=== PATIENT | female | born 1960 | race Caucasian/White ===

== ENCOUNTER 2017-10-16 15:09 | Emergency (ER) | payer BC, OTHER ==
[2017-10-16] MEDS ORDERED: IOPAMIDOL-370 75 ML VIAL IV ONE (16:08)
[2017-10-16 16:25] LABS: BASOPHILS % (AUTO) 0.4 % (0.0-5.0); EOSINOPHILS % (AUTO) 11.1 % (0.0-8.0); HEMATOCRIT 37.2 % (36-48); LYMPHOCYTES % (AUTO) 25.2 % (21.0-51.0); MEAN CORPUSCULAR HEMOGLOBIN 32.3 pg (27.0-33.0); MEAN CORPUSCULAR HGB CONC 34.6 g/dL (32.0-36.0); MEAN CORPUSCULAR VOLUME 93.5 fL (79-99); MONOCYTES % (AUTO) 7.9 % (3.0-13.0); NEUTROPHILS % (AUTO) 55.4 % (40.0-77.0); PLATELET COUNT (AUTO) 241 K/uL (130-400); RED BLOOD CELL COUNT(AUTO) 3.98 MIL/uL (4.00-5.50); RED CELL DISTRIBUTION WIDTH 14.8 % (11.0-15.5); WHITE BLOOD COUNT (AUTO) 10.8 K/uL (4.8-10.8)
[2017-10-16 16:34] LABS: CREATININE 0.7 mg/dL (0.5-1.5); POTASSIUM 4.5 mmol/L (3.5-5.1)
[2017-10-16] MEDS ORDERED: CLINDAMYCIN 600 MG/D5% WATER 50 ML IV ONE (16:34)
[2017-10-16] MEDS ORDERED: SODIUM CHLORIDE 0.9% 1000ML 1,000 ML IV ONE (16:34)
[2017-10-16 16:38] LABS: ALBUMIN 3.6 g/dL (3.5-5.0); BILIRUBIN,TOTAL 0.4 mg/dL (0.2-1.0); TOTAL PROTEIN, SERUM 7.9 g/dL (6.0-8.3)
== END 2017-10-16 17:49 | disposition home or self-care (01) ==
LOC: EDH 15:09
DX: K04.7 Periapical abscess without sinus (principal); L03.211 Cellulitis of face; Z72.0 Tobacco use
CPT/HCPCS: 36415; 70487; 80053; 85025; 96360; 99285; J3490; J7030; Q9967

== ENCOUNTER 2020-06-01 14:34 | Inpatient (IN) | payer OTHER ==
[~2020-06-01] VITALS: Ht 180.3 cm; Wt 108.4 kg
[2020-06-01 15:35] LABS: BASOPHILS % (AUTO) 0.4 % (0.0-5.0); HEMATOCRIT 42.5 % (36-48); LYMPHOCYTES % (AUTO) 30.5 % (21.0-51.0); MEAN CORPUSCULAR HEMOGLOBIN 31.9 pg (27.0-33.0); MEAN CORPUSCULAR HGB CONC 32.7 g/dL (32.0-36.0); MEAN CORPUSCULAR VOLUME 97.5 fL (79-99); MONOCYTES % (AUTO) 8.7 % (3.0-13.0); NEUTROPHILS % (AUTO) 56.2 % (40.0-77.0); PLATELET COUNT (AUTO) 213 K/uL (130-400); RED BLOOD CELL COUNT(AUTO) 4.36 MIL/uL (4.00-5.50); RED CELL DISTRIBUTION WIDTH 14.8 % (11.0-15.5); WHITE BLOOD COUNT (AUTO) 10.6 K/uL (4.8-10.8)
[2020-06-01 15:38] LABS: APPEARANCE,URINE Clear (CLEAR); BILIRUBIN,URINE Negative (NEGATIVE); COLOR,URINE Yellow (YELLOW); GLUCOSE, URINE (UA) Negative (NEGATIVE); KETONES,URINE Negative (NEGATIVE); LEUKOCYTE ESTERASE ,URINE Negative (NEGATIVE); NITRATE,URINE Negative (NEGATIVE); OCCULT BLOOD,URINE Negative (NEGATIVE); PROTEIN,URINE Negative (NEGATIVE)
[2020-06-01 15:49] LABS: CREATININE 0.7 mg/dL (0.5-1.5); POTASSIUM 4.1 mmol/L (3.5-5.1)
[2020-06-01 15:51] LABS: INR 1.06 (0.85-1.15); PARTIAL THROMBOPLASTIN TIME 31.9 SEC (26.3-35.5); PROTHROMBIN TIME 11.4 SEC (9.6-11.6)
[2020-06-01 16:01] LABS: ALBUMIN 4.2 g/dL (3.5-5.0); BILIRUBIN,TOTAL 0.9 mg/dL (0.2-1.0); MAGNESIUM 3.1 mg/dL (1.80-2.40); THYROID STIMULATING HORMONE 1.11 uIU/mL (0.36-3.74); TOTAL PROTEIN, SERUM 8.9 g/dL (6.0-8.3)
[2020-06-01 16:02] LABS: B-TYPE NATRIURETIC PEPTIDE 296 pg/mL (0-100)
[2020-06-01] MEDS ORDERED: FUROSEMIDE 10 MG/ML 4ML VIAL ONE ×2 (16:32→23:21)
[2020-06-01] MEDS ORDERED: ACETAMINOPHEN EXTRA STRENGTH 500 MG TABLET ONE (18:30)
[2020-06-01] MEDS: CEFTRIAXONE SODIUM 1 GM IV SCH (19:45)
[2020-06-01] MEDS ORDERED: ONDANSETRON HCL 4 MG/2 ML VIAL IV PRN (19:45)
[2020-06-01] MEDS ORDERED: ACETAMINOPHEN 325 MG TAB PO PRN ×2 (19:45)
[2020-06-01] MEDS ORDERED: MORPHINE SULFATE 2 MG/ML 1ML SYG IV PRN (19:45)
[2020-06-01] MEDS: METHYLPREDNISOLONE SOD SUCC 125MG/2ML VIAL IV SCH (19:45)
[2020-06-01] MEDS ORDERED: ONDANSETRON HCL 4 MG/2 ML VIAL ONE (20:30)
[2020-06-01] MEDS: FUROSEMIDE 10 MG/ML 2ML VIAL IV SCH (21:00)
[2020-06-01] MEDS: FAMOTIDINE/PF 20 MG/2 ML VIAL IV SCH (21:00)
[2020-06-01] MEDS ORDERED: IPRATROPIUM/ALBUTEROL SULFATE 3 ML SOLUTION IH ONE (23:07)
[2020-06-01] MEDS ORDERED: METHYLPREDNISOLONE SOD SUCC 40MG/ML 1ML ONE (23:21)
[2020-06-01] MEDS ORDERED: FAMOTIDINE/PF 20 MG/2 ML VIAL IV ONE (23:21)
[2020-06-01] MEDS ORDERED: CEFTRIAXONE SODIUM 1 GM ONE (23:22)
[2020-06-02] VITALS (7 sets, daily range): BP systolic 102–139; BP diastolic 42–71
[2020-06-02] MEDS ORDERED: LEVO25TA54 PO (01:55)
[2020-06-02] MEDS ORDERED: ATOR40TA71 PO (01:55)
[2020-06-02] MEDS ORDERED: AMLO2.5T4 PO (01:55)
[2020-06-02] MEDS ORDERED: FLUO20TA29 PO (01:59)
[2020-06-02] MEDS ORDERED: CLOP75TA32 PO (01:59)
[2020-06-02] MEDS ORDERED: METO-408 PO (01:59)
[2020-06-02 03:45] LABS: BASOPHILS % (AUTO) 0.3 % (0.0-5.0); EOSINOPHILS % (AUTO) 1.3 % (0.0-8.0); HEMATOCRIT 40.8 % (36-48); LYMPHOCYTES % (AUTO) 13.8 % (21.0-51.0); MEAN CORPUSCULAR HEMOGLOBIN 31.4 pg (27.0-33.0); MEAN CORPUSCULAR HGB CONC 32.6 g/dL (32.0-36.0); MEAN CORPUSCULAR VOLUME 96.2 fL (79-99); MONOCYTES % (AUTO) 2.8 % (3.0-13.0); NEUTROPHILS % (AUTO) 81.4 % (40.0-77.0); PLATELET COUNT (AUTO) 185 K/uL (130-400); RED BLOOD CELL COUNT(AUTO) 4.24 MIL/uL (4.00-5.50); RED CELL DISTRIBUTION WIDTH 14.6 % (11.0-15.5); WHITE BLOOD COUNT (AUTO) 7.8 K/uL (4.8-10.8)
[2020-06-02] MEDS: METHYLPREDNISOLONE SOD SUCC 125MG/2ML VIAL IV SCH ×3 (03:58→20:07)
[2020-06-02 04:02] LABS: BILIRUBIN,TOTAL 0.7 mg/dL (0.2-1.0); CREATININE 0.9 mg/dL (0.5-1.5); POTASSIUM 3.9 mmol/L (3.5-5.1); TOTAL PROTEIN, SERUM 8.4 g/dL (6.0-8.3)
[2020-06-02 04:03] LABS: B-TYPE NATRIURETIC PEPTIDE 218 pg/mL (0-100)
[2020-06-02] MEDS: IPRATROPIUM/ALBUTEROL SULFATE 3 ML SOLUTION IH SCH ×4 (06:00→18:00)
[2020-06-02] MEDS: FAMOTIDINE/PF 20 MG/2 ML VIAL IV SCH ×2 (08:46→20:07)
[2020-06-02] MEDS: CEFTRIAXONE SODIUM 1 GM IV SCH ×2 (08:46→20:08)
[2020-06-02] MEDS: FUROSEMIDE 10 MG/ML 2ML VIAL IV SCH ×2 (08:47→20:08)
[2020-06-02] MEDS: ENOXAPARIN SODIUM 30 MG/0.3 ML SQ SCH (08:48)
[2020-06-02] MEDS ORDERED: IOHEXOL-350 75 ML VIAL IV ONE (12:49)
--- NOTE | 2020-06-02 16:49 | NUR ---
DCP CM met with pt discussed dc plans. Pt is independent prior to admission, lives at home with spouse. Denies any equipment/services. Feels safe to go back home, still drives, spouse able to assist with transportation and needs as necessary. DC plan to home once stable. CM to continue to follow up. Addendum: 06/02/20 at 1651 by KATHERINE FABIAN LVN CM Amended: Links added.
[2020-06-02] MEDS ORDERED: CLOPIDOGREL BISULFATE 75 MG TAB PO SCH (17:15)
[2020-06-02] MEDS: ALBUTEROL INHALER 90MCG/INH IH SCH (20:08)
[2020-06-02] MEDS: ZOLPIDEM TARTRATE 5 MG TAB PO PRN (20:24)
[2020-06-03] MEDS: METHYLPREDNISOLONE SOD SUCC 125MG/2ML VIAL IV SCH (03:23)
[2020-06-03 04:32] VITALS: BP 105/63
[2020-06-03 05:41] LABS: BASOPHILS % (AUTO) 0.2 % (0.0-5.0); HEMATOCRIT 39.3 % (36-48); LYMPHOCYTES % (AUTO) 5.6 % (21.0-51.0); MEAN CORPUSCULAR HEMOGLOBIN 31.9 pg (27.0-33.0); MEAN CORPUSCULAR HGB CONC 33.1 g/dL (32.0-36.0); MEAN CORPUSCULAR VOLUME 96.3 fL (79-99); MONOCYTES % (AUTO) 2.3 % (3.0-13.0); NEUTROPHILS % (AUTO) 91.2 % (40.0-77.0); PLATELET COUNT (AUTO) 217 K/uL (130-400); RED BLOOD CELL COUNT(AUTO) 4.08 MIL/uL (4.00-5.50); RED CELL DISTRIBUTION WIDTH 14.3 % (11.0-15.5); WHITE BLOOD COUNT (AUTO) 15.3 K/uL (4.8-10.8)
[2020-06-03 05:52] LABS: CREATININE 0.9 mg/dL (0.5-1.5); MAGNESIUM 1.9 mg/dL (1.80-2.40); POTASSIUM 3.7 mmol/L (3.5-5.1)
[2020-06-03] MEDS: IPRATROPIUM/ALBUTEROL SULFATE 3 ML SOLUTION IH SCH ×3 (06:00→18:45)
[2020-06-03] MEDS: ALBUTEROL INHALER 90MCG/INH IH SCH ×2 (06:00)
[2020-06-03 08:00] VITALS: BP 120/51
--- NOTE | 2020-06-03 09:00 | NUR ---
PATIENT CONCERNS pt states has been waiting on cardiology ,states I am calling Dr Leroy to let him know that I have not been seen ,stated to pt there s no need for that cardiology should be here soon Dr Leavitt here at this time spoke with pt new orders given
[2020-06-03] MEDS: FUROSEMIDE 10 MG/ML 2ML VIAL IV SCH ×2 (09:31→21:42)
[2020-06-03] MEDS: FAMOTIDINE/PF 20 MG/2 ML VIAL IV SCH ×2 (09:32→21:41)
[2020-06-03] MEDS: CEFTRIAXONE SODIUM 1 GM IV SCH ×2 (09:33→18:42)
[2020-06-03] MEDS: FLUOXETINE HCL 20 MG CAPSULE PO SCH (09:33)
[2020-06-03] MEDS: ATORVASTATIN CALCIUM 40 MG TABLET PO SCH (09:33)
[2020-06-03] MEDS: ENOXAPARIN SODIUM 30 MG/0.3 ML SQ SCH (09:34)
[2020-06-03] MEDS: LEVOTHYROXINE 25 MCG TABLET PO SCH (09:54)
[2020-06-03 12:00] VITALS: BP 123/66
--- NOTE | 2020-06-03 12:51 | NUR ---
RD NOTE: Pt admitted due to CHF exacerbation. RD consult due to trigger. Pt is currently on a heart healthy diet and consuming 100% of her meal tray. Pt expressed concerns for stomach ulcers and that she does not like taking antacids. Pt was encouraged to decrease intake of spicy and acidic foods. RD recommendation: continue current diet order. Monitor PO intake, intake/outputs, and labs. RD will continue to follow. LABS: WBC 15.3, CL 98, BUN 29, CREAT 0.9, GFR 67, BG 181, TOT PRO 8.4, ALB 4.0, BNP 218 LBM 06/01/20 Addendum: 06/03/20 at [address] Amended: Links added.
[2020-06-03 16:00] VITALS: BP 125/66
[2020-06-03] MEDS: CLOPIDOGREL BISULFATE 75 MG TAB PO SCH (18:00)
[2020-06-03 19:48] VITALS: BP 100/44
--- NOTE | 2020-06-03 21:00 | NUR ---
MD ROUNDS VISITED WITH PATIENT. POC DISCUSSED. NO NEW ORDERS AT THIS TIME. PATIENT AWARE AND UPSET THAT IT HAS TAKEN THE MD THIS LONG TO SEE HER. PATIENT HAD NOT MENTIONED A HEADACHE PRIOR TO MD VISIT. PATIENT WAS ASSESSED WITH NO COMPLAINTS OF A HEADACHE. HOSPITALIST CALLED AND AWARE WITH NEW ORDERS FOR A ONE TIME DOSE OF TORADOL 15MG IVP AND PATIENT REFUSED AT THIS TIME. PATIENT STATES SHE WAS JUST UPSET AND WILL WAIT FOR HEADACHE TO SUBSIDE. RESP EVEN AND UNLABORED. NO SOB NOTED. ON ROOM AIR. CALL LIGHT WITHIN REACH. WILL CONTINUE TO BE OBSERVED. Addendum: 06/04/20 at 0202 by DEMETRI HERNANDEZ RN RN Amended: Links added.
[2020-06-03] MEDS ORDERED: KETOROLAC TROMETHAMINE 15MG/ML ONE (21:39)
[2020-06-03] MEDS: ZOLPIDEM TARTRATE 5 MG TAB PO PRN (21:40)
[2020-06-03] MEDS ORDERED: KETOROLAC TROMETHAMINE 15MG/ML IV SCH (21:45)
[2020-06-03 23:36] VITALS: BP 132/71
[2020-06-04] MEDS: IPRATROPIUM/ALBUTEROL SULFATE 3 ML SOLUTION IH SCH ×3 (00:03→17:07)
[2020-06-04 04:02] VITALS: BP 125/69
[2020-06-04] MEDS: LEVOTHYROXINE 25 MCG TABLET PO SCH (05:34)
[2020-06-04 06:45] LABS: CREATININE 0.9 mg/dL (0.5-1.5); MAGNESIUM 2.1 mg/dL (1.80-2.40); POTASSIUM 3.4 mmol/L (3.5-5.1)
[2020-06-04 08:00] VITALS: BP 120/53
[2020-06-04] MEDS ORDERED: POTASSIUM CHLORIDE 20 MEQ ERTAB PO SCH (08:30)
[2020-06-04] MEDS: CEFTRIAXONE SODIUM 1 GM IV SCH ×2 (09:07→21:42)
[2020-06-04] MEDS: FUROSEMIDE 10 MG/ML 2ML VIAL IV SCH (09:09)
[2020-06-04] MEDS: FAMOTIDINE/PF 20 MG/2 ML VIAL IV SCH ×2 (09:09→21:42)
[2020-06-04] MEDS: PREDNISONE 20 MG TABLET PO SCH (09:10)
[2020-06-04] MEDS: FLUOXETINE HCL 20 MG CAPSULE PO SCH (09:10)
[2020-06-04] MEDS: MAGNESIUM OXIDE 400 MG TABLET PO SCH (09:10)
[2020-06-04] MEDS: ATORVASTATIN CALCIUM 40 MG TABLET PO SCH (09:10)
[2020-06-04] MEDS: CLOPIDOGREL BISULFATE 75 MG TAB PO SCH (09:11)
[2020-06-04] MEDS: ENOXAPARIN SODIUM 30 MG/0.3 ML SQ SCH (09:13)
[2020-06-04 12:00] VITALS: BP 114/51
[2020-06-04 16:00] VITALS: BP 106/65
[2020-06-04 19:00] VITALS: BP 122/38
[2020-06-04] MEDS: ZOLPIDEM TARTRATE 5 MG TAB PO PRN (21:40)
[2020-06-04] MEDS: FUROSEMIDE 20 MG TABLET PO SCH (21:42)
[2020-06-05 00:02] VITALS: BP 141/78
[2020-06-05] MEDS: IPRATROPIUM/ALBUTEROL SULFATE 3 ML SOLUTION IH SCH ×3 (00:13→12:08)
[2020-06-05 05:47] LABS: BASOPHILS % (AUTO) 0.1 % (0.0-5.0); EOSINOPHILS % (AUTO) 0.7 % (0.0-8.0); HEMATOCRIT 40.4 % (36-48); MEAN CORPUSCULAR HEMOGLOBIN 31.7 pg (27.0-33.0); MEAN CORPUSCULAR HGB CONC 32.7 g/dL (32.0-36.0); MEAN CORPUSCULAR VOLUME 96.9 fL (79-99); MONOCYTES % (AUTO) 7.6 % (3.0-13.0); NEUTROPHILS % (AUTO) 66.1 % (40.0-77.0); PLATELET COUNT (AUTO) 196 K/uL (130-400); RED BLOOD CELL COUNT(AUTO) 4.17 MIL/uL (4.00-5.50); RED CELL DISTRIBUTION WIDTH 14.9 % (11.0-15.5); WHITE BLOOD COUNT (AUTO) 9.8 K/uL (4.8-10.8)
[2020-06-05] MEDS: LEVOTHYROXINE 25 MCG TABLET PO SCH (05:52)
[2020-06-05 06:04] LABS: CARBON DIOXIDE 34 mmol/L (21-32); CHLORIDE 101 mmol/L (101-111); CREATININE 0.8 mg/dL (0.5-1.5); GLOMERULAR FILTR. RATE CALC 77 mL/min (>60); GLUCOSE,RANDOM 95 mg/dL (70-105); POTASSIUM 3.8 mmol/L (3.5-5.1); SODIUM SERUM 139 mmol/L (136-145); UREA NITROGEN, BLOOD 25 mg/dL (7-18)
[2020-06-05 06:14] VITALS: BP 133/70
[2020-06-05 08:00] VITALS: BP 148/69
[2020-06-05] MEDS: CEFTRIAXONE SODIUM 1 GM IV SCH (08:17)
[2020-06-05] MEDS: PREDNISONE 20 MG TABLET PO SCH (08:17)
[2020-06-05] MEDS: FUROSEMIDE 20 MG TABLET PO SCH (08:17)
[2020-06-05] MEDS: FAMOTIDINE/PF 20 MG/2 ML VIAL IV SCH (08:17)
[2020-06-05] MEDS: CLOPIDOGREL BISULFATE 75 MG TAB PO SCH (08:18)
[2020-06-05] MEDS: ATORVASTATIN CALCIUM 40 MG TABLET PO SCH (08:18)
[2020-06-05] MEDS: MAGNESIUM OXIDE 400 MG TABLET PO SCH (08:18)
[2020-06-05] MEDS: FLUOXETINE HCL 20 MG CAPSULE PO SCH (08:18)
[2020-06-05] MEDS: ENOXAPARIN SODIUM 30 MG/0.3 ML SQ SCH (08:19)
[2020-06-05 11:52] VITALS: BP 117/50
== END 2020-06-05 13:20 | disposition home or self-care (01) | DRG 291 ==
LOC: EDH 14:34 → UNDOADMIN 17:09 → EDHIP 17:09 → 3BH 21:44
PROVIDERS: ADMIT Hospitalist; ATTEND Hospitalist
DX: I11.0 Hypertensive heart disease with heart failure (principal); J96.01 Acute respiratory failure with hypoxia; J44.1 Chronic obstructive pulmonary disease with (acute) exacerbation; R00.1 Bradycardia, unspecified; I50.43 Acute on chronic combined systolic (congestive) and diastolic (congestive) heart failure; T44.7X5A Adverse effect of beta-adrenoreceptor antagonists, initial encounter; I48.0 Paroxysmal atrial fibrillation; I25.10 Atherosclerotic heart disease of native coronary artery without angina pectoris; E78.5 Hyperlipidemia, unspecified; R51.9 Headache, unspecified; E78.00 Pure hypercholesterolemia, unspecified; G47.33 Obstructive sleep apnea (adult) (pediatric); E66.9 Obesity, unspecified; E03.9 Hypothyroidism, unspecified; Z20.828 Contact with and (suspected) exposure to other viral communicable diseases; E05.90 Thyrotoxicosis, unspecified without thyrotoxic crisis or storm; Z90.710 Acquired absence of both cervix and uterus; Z87.891 Personal history of nicotine dependence; Z86.73 Personal history of transient ischemic attack (TIA), and cerebral infarction without residual deficits; Y92.89 Other specified places as the place of occurrence of the external cause; Z68.33 Body mass index [BMI] 33.0-33.9, adult; Z98.891 History of uterine scar from previous surgery
CPT/HCPCS: 36415; 70450; 70551; 71045; 71275; 72141; 80048; 80053; 81003; 82550; 83735; 83880; 84145; 84443; 84484; 85025; 85378; 85610; 85730; 87426; 93005; 93306; 93356; 94060; 94640; 94664; 94727; 94729; G0378; J0696; J1650; J1885; J1940; J2405; J2920; J2930; J3490; Q9967; U0003

== ENCOUNTER → 2020-06-16 | Outpatient (CLI) | payer OTHER ==
[~2020-06-16] MED LIST: ATOR40TA71 PO; CLOP75TA32 PO; FLUO20TA29 PO; LEVO25TA54 PO
[2020-06-16] MEDS: REGADENOSON 0.4 MG/5 ML PF SYG IVP SCH (11:40)
== END | disposition home or self-care (01) ==
LOC: SHCH 08:17
PROVIDERS: ATTEND Internal Medicine Cardiovascular Disease
DX: R06.09 Other forms of dyspnea (principal)
CPT/HCPCS: 78452; 93017; 96374; A9500 ×2; J2785

== ENCOUNTER → 2022-07-25 | Outpatient (CLI) | payer OTHER ==
[2022-07-25 12:15] LABS: BASOPHILS % (AUTO) 0.4 % (0.0-5.0); EOSINOPHILS % (AUTO) 3.2 % (0.0-8.0); HEMATOCRIT 33.4 % (36-48); LYMPHOCYTES % (AUTO) 23.3 % (21.0-51.0); MEAN CORPUSCULAR HGB CONC 29.9 g/dL (32.0-36.0); MEAN CORPUSCULAR VOLUME 96.8 fL (79-99); MONOCYTES % (AUTO) 7.9 % (3.0-13.0); PLATELET COUNT (AUTO) 309 K/uL (130-400); RED BLOOD CELL COUNT(AUTO) 3.45 MIL/uL (4.00-5.50); RED CELL DISTRIBUTION WIDTH 16.3 % (11.0-15.5); WHITE BLOOD COUNT (AUTO) 10.7 K/uL (4.8-10.8)
== END | disposition home or self-care (01) ==
LOC: LAB 09:08
PROVIDERS: ATTEND Internal Medicine Cardiovascular Disease
DX: I48.0 Paroxysmal atrial fibrillation (principal); I50.32 Chronic diastolic (congestive) heart failure
CPT/HCPCS: 36415; 85025

== ENCOUNTER 2022-12-05 06:28 | Day surgery (SDC) | payer OTHER ==
[2022-12-03 15:18] VITALS: BP 122/63
[2022-12-03 15:18] LABS: BASOPHILS % (AUTO) 0.4 % (0.0-5.0); EOSINOPHILS % (AUTO) 2.7 % (0.0-8.0); HEMATOCRIT 36.9 % (36-48); LYMPHOCYTES % (AUTO) 13.7 % (21.0-51.0); MEAN CORPUSCULAR HEMOGLOBIN 30.3 pg (27.0-33.0); MEAN CORPUSCULAR HGB CONC 30.9 g/dL (32.0-36.0); MEAN CORPUSCULAR VOLUME 98.1 fL (79-99); MONOCYTES % (AUTO) 9.2 % (3.0-13.0); NEUTROPHILS % (AUTO) 73.6 % (40.0-77.0); PLATELET COUNT (AUTO) 228 K/uL (130-400); RED BLOOD CELL COUNT(AUTO) 3.76 MIL/uL (4.00-5.50); WHITE BLOOD COUNT (AUTO) 10.3 K/uL (4.8-10.8)
[2022-12-03 15:27] LABS: CREATININE 0.8 mg/dL (0.5-1.5); POTASSIUM 4.8 mmol/L (3.5-5.1)
[2022-12-03 15:30] LABS: INR 1.21 (0.85-1.15)
[2022-12-03 15:31] LABS: PARTIAL THROMBOPLASTIN TIME 38.4 SEC (26.3-35.5)
[~2022-12-05] VITALS: Ht 180.3 cm; Wt 104.3 kg
[~2022-12-05 06:28] MED LIST changes: +AEC81 PO; +APIX5TAB PO; -CLOP75TA32 PO; +FLEC100T3 PO; -FLUO20TA29 PO; +FLUO40CA49 PO; +FURO20TA4 PO; +METO25TA6 PO
[2022-12-05 06:57] VITALS: BP 102/52
[2022-12-05] MEDS ORDERED: 0.9%NACL 1000ML 1,000 ML IV ONE (07:01)
[2022-12-05] MEDS ORDERED: FENTANYL CITRATE PF 50 MCG/1 ML 2ML VIAL ONE (08:06)
[2022-12-05] MEDS ORDERED: MIDAZOLAM HCL 1 MG/ML 2ML VIAL ONE (08:06)
== END 2022-12-05 10:00 | disposition home or self-care (01) ==
LOC: CLH 06:28 → DAH 06:28 → CLH 10:00
PROVIDERS: ATTEND Internal Medicine Cardiovascular Disease
DX: I48.19 Other persistent atrial fibrillation (principal); I44.7 Left bundle-branch block, unspecified; E78.5 Hyperlipidemia, unspecified; E03.9 Hypothyroidism, unspecified; J44.9 Chronic obstructive pulmonary disease, unspecified; F17.200 Nicotine dependence, unspecified, uncomplicated; I50.31 Acute diastolic (congestive) heart failure; J84.10 Pulmonary fibrosis, unspecified; Z53.8 Procedure and treatment not carried out for other reasons; Z79.01 Long term (current) use of anticoagulants; Z79.899 Other long term (current) drug therapy; Z86.73 Personal history of transient ischemic attack (TIA), and cerebral infarction without residual deficits
CPT/HCPCS: 80048; 85025; 85610; 85730; 36415; 93005; J7030; J2250; J3010